=== PATIENT | female | born 1995 | race Caucasian/White ===

== ENCOUNTER 2016-04-22 04:00 | Emergency (ER) | payer SELFPAY ==
[2016-04-22 04:01] VITALS: BMI 20.7
[2016-04-22] MEDS ORDERED: NS 1,000 ML IV ONE (04:07)
[2016-04-22] MEDS ORDERED: ONDANSETRON HCL 4 MG/2 ML VIAL IV ONE (04:07)
[2016-04-22] MEDS ORDERED: HYDROmorphone 1 MG INJECTION IV ONE (04:07)
--- NOTE | 2016-04-22 04:09 | EDPRACDOC ---
- General Information Stated Complaint: ARM PAIN Time Seen by Provider: 04/22/16 04:06 Home Medications: Home Medications Levonorgestrel-Ethin Estradiol [Orsythia-28 Tablet] 1 tab PO DAILY 07/25/15 Oxycodone Immediate Release [Oxy-Ir] 5 mg PO Q4H PRN #40 tab 07/27/15 Promethazine HCl [Phenergan] 12.5 mg PO Q6 PRN #30 tablet 07/27/15 Lorazepam [Ativan] 0.5 mg PO TID #10 tablet 09/15/15 Hydrocodone Bit/Acetaminophen [Hydrocodon-Acetaminophen 5-325] 1 - 2 tab PO Q6H PRN #10 tab 11/02/15 Diphenhydramine HCl [Benadryl Allergy] 25 mg PO Q4-6H PRN #30 tablet 04/09/16 Prednisone [Deltasone, Orasone] 20 mg PO DAILY #20 tab 04/09/16 Ranitidine [Zantac] 150 mg PO BID #14 tablet 04/09/16 Ketorolac Tromethamine 10 mg PO Q6H PRN #20 tab 04/22/16 Allergies/Adverse Reactions: Allergies Allergy/AdvReac Type Severity Reaction Status Date / Time Penicillins Allergy Severe Hives* Verified 03/19/16 09:29 - History of Present Illness HPI: FALL WHILE SNOWBOARDING; PAIN TO LEFT ELBOW. DENIES FOREARM OR HUMERUS PAIN Dominant Side: Reports: Left Mechanism: Reports: FOOSH, Blunt Trauma Circumstances: Reports: Playing Tetanus Up To Date?: Yes Pain Severity: Reports: Mild Ability to Move Elbow: Limited Associated Signs and Symptoms: Reports: None ED Past Medical History - History Reviewed Yes Nurses notes reviewed and agree except as marked - Patient Medical History GI/ History: Reports: Urinary Tract Infection Psychological History: Reports: Depression (not medicated at this time), Anxiety. Denies: Substance Use Disorder - Family Medical History Reports: Hypertension (Mother), Stroke (Maternal Grandfather) - Social Medical History Smoking Status: Never smoker Social History: Denies: Substance Use Disorder EDM Review of Systems - Review of Systems ROS Negative Except as Marked: Yes All systems reviewed and were negative except as marked - Physical Exam Constitutional: Alert (Awake), No apparent distress Oriented to: Time, Person, Place Last recorded Vital Signs: Oxygen Pulse Oxygen Saturation O2 Device Oxygen Flow Rate Fraction of Inspired Oxygen ( FIO2) - HEENT Head: Normal ( normocephalic) Eye Exam: Normal (PERRL, EOMI, Sclera white) Oropharynx: Normal (Pharynx:Moist without exudate,Gums-no swelling) ENT EAC: Normal TMJ: Normal Nose: No Symptoms Reported (septum midline) Neck: Normal (FROM, trachea at midline) - Respiratory/Cardiovascular Respiratory: Normal - CTA (BBS clear to auscultation without adventitious sounds ) Cardiovascular: Normal (RRR without murmur, gallop or rub) - GI Auscultation: Normal (NABS) Palpation: Normal (Soft,No rebound or guarding, non distended) Tenderness: Non tender Winn's Sign: Negative - Musculoskeletal Back: Normal (Non-Tender) Extremities: Normal (Normal tone, Pulses 2+ No cyanosis or edema, FROM) - Integumentary Skin: Normal, Warm, Dry Lymphatics: Normal (no adenopathy) - Neurologic Memory Impaired: Normal Motor Function: Normal (Normal tone, Pulses 2+ No cyanosis or edema, FROM) Cranial Nerve: Normal (CN II-X11 intact sensation, strength 5/5) Cerebellar: Normal Mood Description: Normal Perception: Normal ED Elbow Problem Exam - Musculoskeletal Elbow Symptoms: Swelling, Limited ROM, Moderate Tenderness Shoulder Symptoms: Normal Arm Symptoms: Normal Forearm Symptoms: Normal Wrist Symptoms: Normal Distal Function/Circulation: Normal, Capillary Refill. negative: Motor Deficit , Pulse Deficit, Sensory Deficit Decision Time to Discharge: 05:03 - Departure Yes I personally saw and evaluated the patient. Disposition: Home Condition: Good Final Diagnosis: Contusion of elbow Instructions: RICE: Routine Care for Injuries Education/Counseling Given To: Patient, Family Member Education/Counseling Given Regarding: Diagnosis, Treatment, Prognosis Referrals: None,No Provider [Primary Care Provider] - One Week Wojciech Marr MD [Staff Physician] - One Week Prescriptions: Ketorolac Tromethamine 10 mg PO Q6H PRN #20 tab PRN Reason: Pain
[2016-04-22 04:14] VITALS: TEMP 97.9
--- NOTE | 2016-04-22 05:01 | DIRPT ---
CLINICAL DATA: Fell snowboarding yesterday morning. Elbow pain. EXAM: LEFT ELBOW - COMPLETE 3+ VIEW; LEFT FOREARM - 2 VIEW COMPARISON: None. FINDINGS: There is no evidence of fracture, dislocation, or joint effusion. There is no evidence of arthropathy or other focal bone abnormality. Soft tissues are unremarkable. IMPRESSION: Negative. Electronically Signed By: Kristie Saucedo M.D. On: 04/22/2016 04:59
--- NOTE | 2016-04-22 05:02 | DIRPT ---
CLINICAL DATA: Fell snowboarding yesterday morning. EXAM: LEFT HUMERUS - 2+ VIEW COMPARISON: None. FINDINGS: There is no evidence of fracture or other focal bone lesions. Soft tissues are unremarkable. IMPRESSION: Negative. Electronically Signed By: Kristie Saucedo M.D. On: 04/22/2016 05:00
[2016-04-22 05:57] VITALS: BP 116/62; PULSE 80
== END 2016-04-22 05:15 | disposition home or self-care (01) ==
LOC: ED 04:00
DX: S50.00XA Contusion of unspecified elbow, initial encounter (principal); W00.0XXA Fall on same level due to ice and snow, initial encounter; Y93.23 Activity, snow (alpine) (downhill) skiing, snowboarding, sledding, tobogganing and snow tubing
CPT/HCPCS: 73060; 73080; 73090; 96374; 96375; 99283; J1170; J2405

== ENCOUNTER 2016-04-26 16:20 | Emergency (ER) | payer SELFPAY ==
[2016-04-26 17:41] VITALS: BP 116/60; PULSE 62; TEMP 97.9
--- NOTE | 2016-04-26 17:42 | DIRPT ---
CLINICAL DATA: Status post fall snowboarding 5 days ago with a left elbow injury. Continued pain. Subsequent encounter. EXAM: LEFT ELBOW - COMPLETE 3+ VIEW COMPARISON: Plain films left elbow 04/22/2016. FINDINGS: There is no evidence of fracture, dislocation, or joint effusion. There is no evidence of arthropathy or other focal bone abnormality. Soft tissues are unremarkable. IMPRESSION: Normal examination. Electronically Signed By: Manpreet Lackey M.D. On: 04/26/2016 17:40
--- NOTE | 2016-04-26 18:24 | EDPRACDOC ---
- General Information Chief Complaint: Upper Extremity Injury Stated Complaint: LT ELBOW PAIN RECENT SEEN IN ED SNOWBOARDING Time Seen by Provider: 04/26/16 17:49 Information Source: Patient Home Medications: Home Medications Levonorgestrel-Ethin Estradiol [Orsythia-28 Tablet] 1 tab PO DAILY 07/25/15 Oxycodone Immediate Release [Oxy-Ir] 5 mg PO Q4H PRN #40 tab 07/27/15 Promethazine HCl [Phenergan] 12.5 mg PO Q6 PRN #30 tablet 07/27/15 Lorazepam [Ativan] 0.5 mg PO TID #10 tablet 09/15/15 Hydrocodone Bit/Acetaminophen [Hydrocodon-Acetaminophen 5-325] 1 - 2 tab PO Q6H PRN #10 tab 11/02/15 Diphenhydramine HCl [Benadryl Allergy] 25 mg PO Q4-6H PRN #30 tablet 04/09/16 Prednisone [Deltasone, Orasone] 20 mg PO DAILY #20 tab 04/09/16 Ranitidine [Zantac] 150 mg PO BID #14 tablet 04/09/16 Ketorolac Tromethamine 10 mg PO Q6H PRN #20 tab 04/22/16 Prednisone [Deltasone, Orasone] 2 tabs PO DAILY #20 tab 04/26/16 Allergies/Adverse Reactions: Allergies Allergy/AdvReac Type Severity Reaction Status Date / Time Penicillins Allergy Severe Hives* Verified 03/19/16 09:29 - History of Present Illness Onset: SATURDAY HPI: PT PRESENTS TODAY WITH PERSISTENT LEFT ELBOW PAIN AFTER FALL FROM SNOWBOARD LAST WEEK. WAS SEEN HERE INITIALLY AND HAD NEG XRAY. STATES SYMPTOMS PERSIST. STATES WORSE WITH PRONATION AND RADIATES UP INTO ARM. NO FEVER/RASH. Location: Reports: Radial Dominant Side: Reports: Left Mechanism: Reports: Blunt Trauma Circumstances: Reports: Fall, Sporting Relevant History: Reports: None Pain Severity: Reports: Moderate Ability to Move Elbow: Fully Associated Signs and Symptoms: Reports: None ED Past Medical History - History Reviewed Yes Nurses notes reviewed and agree except as marked - Patient Medical History GI/ History: Reports: Urinary Tract Infection Psychological History: Reports: Depression, Anxiety. Denies: Substance Use Disorder Surgical History: Reports: Appendectomy - Family Medical History Reports: Hypertension (Mother), Stroke (Maternal Grandfather) - Social Medical History Smoking Status: Never smoker Social History: Denies: Substance Use Disorder EDM Review of Systems - Review of Systems ROS Negative Except as Marked: Yes All systems reviewed and were negative except as marked Constitutional: No Symptoms Reported Respiratory: No Symptoms Reported Cardiovascular: No Symptoms Reported Gastrointestinal: No Symptoms Reported Neurological: No Symptoms Reported Musculoskeletal: Elbow Integumentary: No Symptoms Reported - Physical Exam Constitutional: Alert (Awake), No apparent distress Oriented to: Time, Person, Place Last recorded Vital Signs: Last Vital Signs Temp 97.9 F 04/26/16 17:41 Pulse 62 04/26/16 17:41 Resp 20 04/26/16 17:41 BP 116/60 04/26/16 17:41 Pulse Ox 98 04/26/16 17:41 Oxygen Pulse Oxygen Saturation 98 O2 Device Oxygen Flow Rate Fraction of Inspired Oxygen ( FIO2) - HEENT Head: Normal Eye Exam: Normal Neck: Normal, Denies Pain, Midline - Respiratory/Cardiovascular Respiratory: Normal - CTA Cardiovascular: Normal - GI Palpation: Normal Tenderness: Non tender - Musculoskeletal Back: Normal Extremities: Other (PT STATES PAIN ALONG RADIAL NERVE TO LEFT ELBOW. NO APPARENT DEFORMITY/SWELLING/BRUISING NOTED; DISTAL PULSES INTACT) - Integumentary Skin: Normal Lymphatics: Normal - Neurologic Cerebellar: Normal Mood Description: Normal Thought: Coherent Perception: Normal ED Elbow Problem Exam - Musculoskeletal Elbow Symptoms: Moderate Tenderness Shoulder Symptoms: Normal Arm Symptoms: Normal Forearm Symptoms: Normal Wrist Symptoms: Normal Distal Function/Circulation: Normal - Integumentary Skin: Normal Lymphatics: Normal Decision Time to Discharge: 18:20 - Departure Disposition: Home Condition: Good Final Diagnosis: Radial nerve injury Qualifiers: Encounter type: subsequent encounter Location of peripheral nerve injury: upper arm Laterality: left Qualified Code(s): S44.22XD - Injury of radial nerve at upper arm level, left arm, subsequent encounter Instructions: RICE: Routine Care for Injuries Education/Counseling Given To: Patient Education/Counseling Given Regarding: Diagnosis, Treatment, Follow Up Referrals: Aidan Umaña MD [Primary Care Provider] - One Week Nawaf Crisostomo MD [Staff Physician] - One Week Prescriptions: Prednisone [Deltasone, Orasone] 2 tabs PO DAILY #20 tab Additional Instructions: IF SYMPTOMS PERSIST AFTER TODAYS TREATMENT, FOLLOW UP WITH DR. CRISOSTOMO
== END 2016-04-26 18:31 | disposition home or self-care (01) ==
LOC: EDMC 16:20
DX: S44 Injury of nerves at shoulder and upper arm level (principal); V00.311D Fall from snowboard, subsequent encounter
CPT/HCPCS: 99282